=== PATIENT | female | born 1995 | race Caucasian/White ===

== ENCOUNTER 2017-07-15 12:46 | Emergency (ER) | payer OTHER | END 2017-07-15 15:03 | disposition home or self-care (01) | LOC: M ED 12:46 | DX: S80.02XA Contusion of left knee, initial encounter (principal); W19.XXXA Unspecified fall, initial encounter; Y92.89 Other specified places as the place of occurrence of the external cause; Z87.891 Personal history of nicotine dependence | CPT/HCPCS: 99282 ==

== ENCOUNTER 2017-07-31 20:42 | Emergency (ER) | payer OTHER | END 2017-07-31 22:07 | disposition home or self-care (01) | LOC: M ED 20:42 | DX: L03.316 Cellulitis of umbilicus (principal); Z91.89 Other specified personal risk factors, not elsewhere classified | CPT/HCPCS: 99282 ==

== ENCOUNTER → 2017-10-03 | Outpatient (CLI) | payer OTHER | LOC: M LRY 14:47 | DX: S91.312A Laceration without foreign body, left foot, initial encounter (principal); X58.XXXA Exposure to other specified factors, initial encounter; Y92.89 Other specified places as the place of occurrence of the external cause | CPT/HCPCS: 73650 ==